=== PATIENT | male | born 1980 | race American Indian/Alaskan Native ===

== ENCOUNTER 2018-09-14 16:47 | Emergency (ER) | payer OTHER ==
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
[2018-09-14] MEDS: TYLENOL PO ONE ×2 (17:05→17:07)
[2018-09-14] MEDS ORDERED: TYLENOL PO ONE (17:05)
[2018-09-14] MEDS ORDERED: TYLENOL ONE (17:06)
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
--- NOTE | 2018-09-14 18:08 | XRay Report ---
CLINICAL DATA: neck pain TECHNICAL DATA: AP, lateral, and odontoid views of the cervical spine were obtained. FINDINGS: The vertebral body heights, disc spaces, and alignment are well within normal limits. There is no jannette dence of fracture. No prevertebral soft tissue swelling is evident. IMPRESSION: Normal alignment without evidence of fracture. Signer Name: Manuel Bravo MD Signed: 09/14/2018 6:04 PM Workstation Name: [id number]
[2018-09-14] MEDS ORDERED: NORVASC PO ONE (18:33)
[2018-09-14 18:39] VITALS: BP 172/105
== END 2018-09-14 18:48 | disposition home or self-care (01) ==
LOC: ED 16:47
DX: S76.912A Strain of unspecified muscles, fascia and tendons at thigh level, left thigh, initial encounter (principal); I10 Essential (primary) hypertension; Z79.899 Other long term (current) drug therapy; M25.511 Pain in right shoulder; M25.512 Pain in left shoulder; M54.2 Cervicalgia; V49.9XXA Car occupant (driver) (passenger) injured in unspecified traffic accident, initial encounter; Y93.89 Activity, other specified; Y92.89 Other specified places as the place of occurrence of the external cause; Y99.8 Other external cause status
CPT/HCPCS: 72040